=== PATIENT | male | born 1990 | race Caucasian/White ===

== ENCOUNTER 2019-08-09 11:23 | Emergency (ER) | payer OTHER, SELFPAY ==
--- NOTE | 2019-08-09 12:02 | ED.GENADULT ---
HPI - General Adult General Chief complaint: Upper Respiratory Infection Stated complaint: Sore throat Time Seen by Provider: 08/09/19 12:27 Source: patient and RN notes reviewed Mode of arrival: ambulatory Limitations: no limitations History of Present Illness HPI narrative: This patient's had a 3-day history of a sore throat without any obvious fever. He did feel chilled, but did not take his temperature with a thermometer. He has not had any ear pain or drainage from the ears. He has had no cough. Is been no nasal drainage. He is had no rashes. He has had no nausea, no vomiting, no diarrhea. He has had no hematuria, no dysuria, no pyuria. Is not been traveling. He has had no known exposure to anyone with strep throat, mono, influenza, bronchitis, or pneumonia that he is aware of. He has not been traveling. Related Data Allergies Allergy/AdvReac Type Severity Reaction Status Date / Time No Known Allergies Allergy Verified 08/09/19 12:26 Review of Systems Review of Systems: Narrative: CONSTITUTIONAL: Denies fever, chills, or sweats. Noncontributory except as pertains to the past medical history and history of present illness. EYES: Denies visual changes, redness, or discharge. ENT: Denies rhinorrhea, congestion, sore throat, or otalgia. CARDIOVASCULAR: Denies chest pain, palpitations, or edema. RESPIRATORY: Denies cough or dyspnea. GASTROINTESTINAL: Denies abdominal pain, nausea, vomiting, or diarrhea. GENITOURINARY: Denies dysuria or hematuria. SKIN: Denies rash or itching. MUSCULOSKELETAL: Denies back pain, joint pain, or myalgia. NEUROLOGIC: Denies headache, numbness, or weakness. PSYCHIATRIC: Denies anxiety or depression. PMFSH Comments At time of signature, I have reviewed and agree with nursing past medical, surgical, social, and family history.Please see nursing chart for further information. There is no relevant family history pertinent to the presenting complaint. Exam Narrative: Exam Narrative: GENERAL: Well-appearing, well-nourished, and in no acute distress. HEAD: Normocephalic, atraumatic. EYES: PERRLA and EOMI. EARS: TM's clear BL. NOSE: Nares clear, no rhinorrhea or epistaxis. THROAT:Mucous membranes moist.Oropharynx Normal NECK: Supple. RESPIRATORY: No respiratory distress. Airway patent. Respirations non-labored. Clear to auscultation. HEART: Regular rate and rhythm. No murmur heard. Normal peripheral pulses. ABDOMEN: Soft, nontender, nondistended, normal active bowel sounds.No masses. NO rebound or guarding, No organomegaly. EXTREMITIES: No clubbing/cyanosis/ edema. Normal strength & range of motion. SKIN: Warm, dry.Normal Color. NEURO: Alert and oriented. CN 2-12 grossly intact. No focal deficits. PSYCH: Normal mood and affect. Course Vital Signs Vital signs: Patient is afebrile and the other vital signs within normal limits, except the blood pressure is elevated at 153/86 and should be rechecked with his PCP in 1 to 4 weeks. The potential complications of uncontrolled hypertension are noted.. Medical Decision Making MDM Narrative Medical decision making narrative: Pharyngitis, possible strep throat. Vital Signs Vital Signs: The patient is afebrile and the other vital signs are normal except his blood pressure is elevated at 153/86 and should be rechecked this PCP in 1 to 4 weeks. The potential complications of uncontrolled hypertension are noted. Lab Data Labs: The patient's rapid strep test is positive and he is aware of this the time the office visit. Discharge Plan Discharge Clinical Impression: Pharyngitis Qualifiers: Pharyngitis/tonsillitis etiology: streptococcus Qualified Code(s): J02.0 - Streptococcal pharyngitis Patient Disposition: Home, Self-Care Condition: Stable Instructions: Antibiotic Form Additional Instructions: The side effects and purpose of the medication are noted and the patient Ondnia understanding. Reevaluation with his PCP of [facility]
[2019-08-09 12:10] VITALS: BP 153/86; PULSE 70; RESP 20; TEMP 37.3; O2SAT 99
== END 2019-08-09 12:46 | disposition home or self-care (01) ==
LOC: EXPBETH 12:05
PROVIDERS: Emergency Provider Family Medicine
DX: J02.0 Streptococcal pharyngitis (principal)
CPT/HCPCS: 87880; 99203; G0463

== ENCOUNTER 2021-09-01 17:38 | Emergency (ER) | payer OTHER, SELFPAY ==
[2021-09-01 17:44] VITALS: BP 171/89; PULSE 80; RESP 16; TEMP 37.1; O2SAT 98
--- NOTE | 2021-09-01 17:47 | ED.URI ---
HPI - URI/Sore Throat General Chief Complaint: Upper Respiratory Infection Stated Complaint: Sore Throat Time Seen by Provider: 09/01/21 17:43 Source: patient and RN notes reviewed History of Present Illness HPI Narrative: Patient is a 31-year-old male who presents the urgent care with complaints of sore throat since Sunday. Patient denies any fever, nausea, vomiting, headache. Denies of any use of [id number] meds. Patient states he is prone to strep throat. Patient has no concerns for Covid. Denies any contact with illness. No other acute complaint. No acute distress noted. Patient aware of the plan of care. Some parts of this dictation were generated by voice recognition software and may contain typographical and/or grammatical inaccuracies. Related Data Home Medications Medication Instructions Recorded Confirmed lisinopril 10 mg PO DAILY 09/01/21 09/01/21 Allergies Allergy/AdvReac Type Severity Reaction Status Date / Time No Known Allergies Allergy Verified 09/01/21 17:52 Review of Systems Review of Systems: CONSTITUTIONAL: Denies fever, chills, or sweats. Reports of fatigue EYES: Denies visual changes, redness, or discharge. ENT: Denies rhinorrhea, congestion, otalgia. Reports of sore throat CARDIOVASCULAR: Denies chest pain, palpitations, or edema. RESPIRATORY: Denies cough or dyspnea. GASTROINTESTINAL: Denies abdominal pain, nausea, vomiting, or diarrhea. GENITOURINARY: Denies dysuria or hematuria. SKIN: Denies rash or itching. MUSCULOSKELETAL: Denies back pain, joint pain, or myalgia. NEUROLOGIC: Denies headache, numbness, or weakness. All other systems reviewed are negative, except as documented in HPI. PMFSH Comments At the time of my signature, I reviewed and agree with the nursing past medical, surgical, social, and family history. There is no relevant family history pertinent to the patient complaint. Exam Narrative: GENERAL: This is a well-nourished, well-developed patient, in no apparent distress. HEAD: normocephalic, atraumatic. EYES: PERRL. Sclera clear/white. Vision is grossly intact. EARS: External ears normal, auditory canals clear and without drainage, bilateral nonimpacted cerumen. TMs normal without perforation. Hearing grossly intact. NOSE: External nose normal with no obvious nasal discharge, nares without redness, no rhinorrhea. THROAT: Mucous membranes moist. Moderate erythema in the posterior pharynx without exudate or ulceration. Moderate postnasal drainage. NECK: Neck supple, non-tender mild bilateral submandibular lymphadenopathy CARDIOVASCULAR: Regular rate and rhythm without murmurs, gallops, or rubs. RESPIRATORY: Clear to auscultation. Breath sounds equal bilaterally. No wheezes, rales, or rhonchi. SKIN: warm, intact with no suspicious lesions or rash, good texture and turgor. NEURO: awake, alert, and oriented to person, place and time. There were no obvious focal neurologic abnormalities. EXTREMITIES: No clubbing, cyanosis, or edema. Course Course Level of Care: Express Care Visit Vital Signs Vital signs: Vital Signs Temperature 98.8 F 09/01/21 17:44 Pulse Rate 80 09/01/21 17:44 Respiratory Rate 16 09/01/21 17:44 Blood Pressure 171/89 H 09/01/21 17:44 Pulse Oximetry 98 09/01/21 17:44 Temperature 98.8 F 09/01/21 17:44 Pulse Rate 80 09/01/21 17:44 Respiratory Rate 16 09/01/21 17:44 Blood Pressure 171/89 H 09/01/21 17:44 Pulse Oximetry 98 09/01/21 17:44 Reviewed?patient is informed that they may have pre-hypertension or hypertension based on a blood pressure reading in the department. I recommend the patient call the primary care provider listed on their discharge instructions or a physician of their choice this week to arrange follow-up for further evaluation of possible pre-hypertension or hypertension. MDM - URI/Sore Throat MDM Narrative Medical decision making narrative: Reviewed lab results with the patient. Aware that st
== END 2021-09-01 18:10 | disposition home or self-care (01) ==
PROVIDERS: Emergency Provider Nurse Practitioner Family; PCP Physician Assistant
DX: J02.0 Streptococcal pharyngitis (principal); I10 Essential (primary) hypertension
CPT/HCPCS: 87880; 99213; G0463

== ENCOUNTER 2022-05-09 08:41 | Emergency (ER) | payer OTHER, SELFPAY ==
[2022-05-09 08:48] VITALS: BP 153/85; PULSE 97; RESP 20; TEMP 36.8; O2SAT 96
--- NOTE | 2022-05-09 08:52 | ED.URI ---
HPI - URI/Sore Throat General Chief Complaint: Upper Respiratory Infection Stated Complaint: sore throat Time Seen by Provider: 05/09/22 08:53 Source: patient and RN notes reviewed History of Present Illness HPI Narrative: patient is a 32-year-old male who presents to the Urgent Care with complaints of a sore throat since Sunday as well as fever. Patient denies any ill exposures. States that he is prone to strep throat. Patient has been taking Tylenol, ibuprofen and vitamin- C. Denies any nausea or vomiting. No other acute complaints. No acute distress noted. Patient aware of the plan of care. Some parts of this dictation were generated by voice recognition software and may contain typographical and/or grammatical inaccuracies. Related Data Home Medications Medication Instructions Recorded Confirmed lisinopril 10 mg tablet 10 mg PO DAILY 09/01/21 05/09/22 Allergies Allergy/AdvReac Type Severity Reaction Status Date / Time No Known Allergies Allergy Verified 05/09/22 08:58 Review of Systems Review of Systems: CONSTITUTIONAL: Denies fever, chills, or sweats. EYES: Denies visual changes, redness, or discharge. ENT: Denies rhinorrhea, congestion, Reports a sore throat and left otalgia CARDIOVASCULAR: Denies chest pain, palpitations, or edema. RESPIRATORY: Denies cough or dyspnea. GASTROINTESTINAL: Denies abdominal pain, nausea, vomiting, or diarrhea. GENITOURINARY: Denies dysuria or hematuria. SKIN: Denies rash or itching. MUSCULOSKELETAL: Denies back pain, joint pain, or myalgia. NEUROLOGIC: Denies headache, numbness, or weakness. All other systems reviewed are negative, except as documented in HPI. PMFSH Comments At the time of my signature, I reviewed and agree with the nursing past medical, surgical, social, and family history. There is no relevant family history pertinent to the patient complaint. Exam Narrative: GENERAL: This is a well-nourished, well-developed patient, in no apparent distress. HEAD: normocephalic, atraumatic. EYES: PERRL. Sclera clear/white. Vision is grossly intact. EARS: External ears normal, auditory canals clear and without drainage, retracted left TM with moderate erythema. Right TM normal without perforation. Hearing grossly intact. NOSE: External nose normal with no obvious nasal discharge, nares without redness, no rhinorrhea. THROAT: Mucous membranes moist, moderate erythema noted to posterior oropharynx with mild to moderate bilateral tonsillar edema / erythema with left exudate and moderate postnasal drainage NECK: Neck supple, moderate bilateral submandibular lymphadenopathy CARDIOVASCULAR: Regular rate and rhythm without murmurs, gallops, or rubs. RESPIRATORY: Clear to auscultation. Breath sounds equal bilaterally. No wheezes, rales, or rhonchi. SKIN: warm, intact with no suspicious lesions or rash, good texture and turgor. NEURO: awake, alert, and oriented to person, place and time. There were no obvious focal neurologic abnormalities. EXTREMITIES: No clubbing, cyanosis, or edema. Course Course Level of Care: Express Care Visit Vital Signs Vital signs: Vital Signs Temperature 98.3 F 05/09/22 08:48 Pulse Rate 97 05/09/22 08:48 Respiratory Rate 20 05/09/22 08:48 Blood Pressure 153/85 H 05/09/22 08:48 Pulse Oximetry 96 05/09/22 08:48 Oxygen Delivery Room Air 05/09/22 08:48 Temperature 98.3 F 05/09/22 08:48 Pulse Rate 97 05/09/22 08:48 Respiratory Rate 20 05/09/22 08:48 Blood Pressure 153/85 H 05/09/22 08:48 Pulse Oximetry 96 05/09/22 08:48 Oxygen Delivery Room Air 05/09/22 08:48 reviewed- Patient is informed that they may have pre-hypertension or hypertension based on a blood pressure reading in the department. I recommend the patient call the primary care provider listed on their discharge instructions or a physician of their choice this week to arrange follow-up for further evaluation of possible pre-hypertension
== END 2022-05-09 09:25 | disposition home or self-care (01) ==
PROVIDERS: Emergency Provider Nurse Practitioner Family; PCP Physician Assistant
DX: J02.0 Streptococcal pharyngitis (principal); H66.92 Otitis media, unspecified, left ear
CPT/HCPCS: 87880; 99213; G0463